=== PATIENT | female | born 1965 | race African-American/Black ===

== ENCOUNTER → 2016-12-05 | Day surgery (SDC) | payer OTHER ==
[~2016-12-05] VITALS: Ht 170.2 cm; Wt 90.5 kg
[~2016-12-05] MED LIST: ACETAMINOPHEN/HYDROcodone 325 MG/5 MG TAB PO PRN; BUPIVACAINE HCL PF 0.5% 30 ML VIAL ONE; BUPIVACAINE/EPINEPHRINE 0.5% 50 ML VIAL ONE; CHLORHEXIDINE GLUCONATE 2 % 1 PACK (2 CLOTHS) TOPICAL PRN; CHLORHEXIDINE GLUCONATE 4% SOLN 120 ML BTL TOPICAL SCH; CYCL-36 PO; FAMOTIDINE 20 MG/2 ML VIAL ONE; IBUP-238 PO; INSULIN HUMAN REGULAR 1,000 UNITS/10 ML VIAL SQ PRN; KETOROLAC TROMETHAMINE 60 MG/2 ML (IM) VIAL IM PRN; LACTATED RINGER'S 1000 ML IV PRN; LANTUS2P SQ; LISI40TA PO; METF850T PO; METO100T PO; METOPROLOL TARTRATE 25 MG TAB PO PRN; MIDAZOLAM HCL 2 MG/2 ML VIAL ONE; POVIDONE IODINE 5% (ANTISEPSIS KIT) 4 APPLICATIONS EACH NARE PRN; PROPOFOL 200 MG/20 ML AMP IV ONE; SIMV40TA PO; SODIUM CHLORID 0.9% 500 ML IV PRN; VANCOMYCIN 1000 MG/NS 250 ML (for <70 kg) IV SCH; ceFAZolin 2 GM PREMIX 50 ML IV SCH
--- NOTE | 2016-12-05 14:11 | MP ---
cc: ANDRÉS LEDESMA M.D. DATE OF SURGERY 12/05/[address] Kareem Ledesma. PREOPERATIVE DIAGNOSIS Right middle trigger finger. POSTOPERATIVE DIAGNOSIS Right middle trigger finger. PROCEDURE Right trigger finger release, middle finger. PROCEDURE IN DETAIL The patient was placed on an operating room stretcher only and the right hand was prepped and draped in the usual sterile fashion. Esmarch bandage was used to exsanguinate the upper extremity and pneumatic tourniquet was inflated to a pressure of 250. The time-out was called and the patient's name, procedure, location were fully verified. A transverse incision was made over the flexor tendon sheath proximal to the distal crease at the MP joint. The wound was taken down carefully through the subcutaneous tissues using sharp and blunt dissection. Care was taken to retract only proximal and distal to avoid any possible stretching of the neurovascular bundles. The flexor tendon sheath was identified and then pierced with a sharp scissor and then longitudinally opened with the same instrument. After full release I was able to bring the flexor tendon out of the wound and it did appear to be free. No triggering was present. Small bleeding points were electrocauterized. The skin edges were then reapproximated with two sutures of 4-0 nylon. Xeroform gauze was applied over the wound followed by application of a bulky hand dressing. The procedure was tolerated well. Sponge count, needle counts reported correct x2 and the estimated blood loss was nil. The patient was transferred to recovery unit in satisfactory condition. Andrés Ledesma MD [facility]/[place] /1:35 PM /2:02 PM
[2016-12-05 14:25] VITALS: PULSE 60
[2016-12-05 14:55] VITALS: BP 138/81; RESP 16; TEMP 98; O2SAT 95
== END | disposition home or self-care (01) ==
LOC: PHSDC 09:42
PROVIDERS: ATTEND Orthopaedic Surgery
DX: M65.331 Trigger finger, right middle finger (principal); I10 Essential (primary) hypertension; E11.9 Type 2 diabetes mellitus without complications; Z79.4 Long term (current) use of insulin
CPT/HCPCS: 01810; 26055; 82948; J0690; J2250; J3010; J3370; J7050; J7120

== ENCOUNTER 2017-02-08 20:17 | Observation (INO) | payer OTHER ==
[~2017-02-08] VITALS: Ht 170.2 cm; Wt 90.0 kg
[~2017-02-08 20:17] MED LIST changes: -ACETAMINOPHEN/HYDROcodone 325 MG/5 MG TAB PO PRN; -BUPIVACAINE HCL PF 0.5% 30 ML VIAL ONE; -BUPIVACAINE/EPINEPHRINE 0.5% 50 ML VIAL ONE; -CHLORHEXIDINE GLUCONATE 2 % 1 PACK (2 CLOTHS) TOPICAL PRN; -CHLORHEXIDINE GLUCONATE 4% SOLN 120 ML BTL TOPICAL SCH; -CYCL-36 PO; -FAMOTIDINE 20 MG/2 ML VIAL ONE; -IBUP-238 PO; -INSULIN HUMAN REGULAR 1,000 UNITS/10 ML VIAL SQ PRN; -KETOROLAC TROMETHAMINE 60 MG/2 ML (IM) VIAL IM PRN; -LACTATED RINGER'S 1000 ML IV PRN; -METOPROLOL TARTRATE 25 MG TAB PO PRN; -MIDAZOLAM HCL 2 MG/2 ML VIAL ONE; -POVIDONE IODINE 5% (ANTISEPSIS KIT) 4 APPLICATIONS EACH NARE PRN; -PROPOFOL 200 MG/20 ML AMP IV ONE; -SODIUM CHLORID 0.9% 500 ML IV PRN; -VANCOMYCIN 1000 MG/NS 250 ML (for <70 kg) IV SCH; -ceFAZolin 2 GM PREMIX 50 ML IV SCH
[2017-02-08 20:19] VITALS: BP 161/82; PULSE 88; RESP 18; TEMP 98.8; O2SAT 99
[2017-02-08] MEDS: NITROGLYCERIN 0.4 MG SL 25 TABS/BTL SL SCH ×2 (20:40→20:50)
[2017-02-08] MEDS ORDERED: SODIUM CHLORIDE 0.9% FLUSH 10 ML FLUSH IVF PRN (20:45)
--- NOTE | 2017-02-08 20:46 | PD ---
HPI Chief Complaint: Chest Pain Time Seen by Provider: 20:28 Travel History International Travel<30 days: No Contact w/Intl Traveler<30days: No Traveled to known affect area: No PFSH Past Medical History Cancer: Yes (MELANOMA 2001) Cardiovascular Problems: No High Cholesterol: Yes Diabetes: Yes Patient Takes Glucophage: Yes Endocrine: No GERD: Yes Genitourinary: No Hepatitis: No Hiatal Hernia: No Hypertension: Yes Immune Disorder: No Musculoskeletal: No Neurologic: No Psychiatric: Yes (CLAUSTROPHOBIC) Reproductive: No Respiratory: No Immunizations Current: Yes Thyroid Disease: No ?: Not Past Surgical History Abdominal Surgery: No AICD: No Cardiac Surgery: No Ear Surgery: No Endocrine Surgery: No Eye Surgery: No Genitourinary Surgery: No Gynecologic Surgery: Yes (PARTIAL HYSTERECTOMY) Hysterectomy: Yes (PARTIAL) Joint Replacement: No Oral Surgery: No Pacemaker: No Thoracic Surgery: No Other Surgery: Yes (CYST REMOVAL RIGHT WRIST) Social History Alcohol Use: No Tobacco Use: No Substance Use: No Allergies-Medications (Allergen,Severity, Reaction): Coded Allergies: acetaminophen (Unverified Allergy, Intermediate, VOMITTING, 02/08/17) PATIENT DENIES ondansetron (Unverified Allergy, Intermediate, HIVES, 02/08/17) propoxyphene (Unverified Allergy, Intermediate, VOMITTING, 02/08/17) PATIENT DENIES morphine (Unverified Adverse Reaction, Mild, VOMITTING, 02/08/17) Uncoded Allergies: STERI STRIPS (Allergy, Severe, BLISTERS, 12/05/16) Reported Meds & Prescriptions Reported Meds & Active Scripts Active Reported Simvastatin 40 Mg Tab 40 Mg PO HS Lantus Inj (Insulin Glargine) 1,000 Unit/10 Ml Vial 1 Units SQ HS Metformin (Metformin HCl) 850 Mg Tab 850 Mg PO BIDPC Metoprolol Tartrate 100 Mg Tab 100 Mg PO DAILY Lisinopril 40 Mg Tab 40 Mg PO DAILY Data Data Last Documented VS Vital Signs Date Time Temp Pulse Resp B/P (MAP) Pulse Ox O2 Delivery O2 Flow Rate FiO2 02/08/17 20:19 98.8 88 18 161/82 (108) 99 Room Air Orders Orders Electrocardiogram (02/08/17 20:36) Ckmb (Isoenzyme) Profile (02/08/17 20:36) Complete Blood Count With Diff (02/08/17 20:36) Comprehensive Metabolic Panel (02/08/17 20:36) Magnesium (Mg) (02/08/17 20:36) Prothrombin Time / Inr (Pt) (02/08/17 20:36) Act Partial Throm Time (Ptt) (02/08/17 20:36) Troponin I (02/08/17 20:36) Lipase (02/08/17 20:36) Chest, Single Ap (02/08/17 20:36) Ecg Monitoring (02/08/17 20:36) Bilateral Bp Monitoring (02/08/17 20:36) Iv Access Insert/Monitor (02/08/17 20:36) Oximetry (02/08/17 20:36) Oxygen Administration (02/08/17 20:36) Sodium Chloride 0.9% Flush (Ns Flush) (02/08/17 20:45) Nitroglycerin Sl (Nitrostat Sl) (02/08/17 20:45) Alma Langley MD Feb 08, 2017 20:46
[2017-02-08 20:53] VITALS: BP 146/81; PULSE 60; RESP 18; O2SAT 97
--- NOTE | 2017-02-08 21:11 | PD ---
HPI Chief Complaint: Chest Pain Time Seen by Provider: 20:30 Travel History International Travel<30 days: No Contact w/Intl Traveler<30days: No Traveled to known affect area: No History of Present Illness HPI Patient is a 51-year-old female presenting to emergency department for evaluation of chest pain. Patient states started earlier today, she initially presented to the [facility] emergency Department where she had an EKG and labs performed, they gave her the option of being admitted or followed up with cardiology as outpatient. She states that she felt well enough to follow up however 45 minutes prior to arrival to [place] she began to have midsternal chest pain that radiates to her left arm again. She states that she just did not feel good and didn't think she would make it to the other hospital. She denies any nausea, vomiting, diaphoresis, headache, palpitations. She does report that she felt dizzy. Patient was discharged from [facility] at 8:00 this evening. She does report a family history of early heart disease, she states also her parents in their late 40s, early 50s from a heart attack. Patient does not smoke, she has a glass of wine occasionally denies any illicit drug use. Her past medical history is significant for hyperlipidemia, type 2 diabetes, hypertension. She was given 4 baby aspirin in [facility]. [facility] Past Medical History Cancer: Yes (MELANOMA 2001) High Cholesterol: Yes Diabetes: Yes Patient Takes Glucophage: Yes GERD: Yes Hypertension: Yes Psychiatric: Yes (CLAUSTROPHOBIC) Immunizations Current: Yes ?: Not Past Surgical History Gynecologic Surgery: Yes (PARTIAL HYSTERECTOMY) Hysterectomy: Yes (PARTIAL) Other Surgery: Yes (CYST REMOVAL RIGHT WRIST) Social History Alcohol Use: No Tobacco Use: No Substance Use: No Allergies-Medications (Allergen,Severity, Reaction): Coded Allergies: acetaminophen (Unverified Allergy, Intermediate, VOMITTING, 02/08/17) PATIENT DENIES ondansetron (Unverified Allergy, Intermediate, HIVES, 02/08/17) propoxyphene (Unverified Allergy, Intermediate, VOMITTING, 02/08/17) PATIENT DENIES morphine (Unverified Adverse Reaction, Mild, VOMITTING, 02/08/17) Uncoded Allergies: STERI STRIPS (Allergy, Severe, BLISTERS, 12/05/16) Reported Meds & Prescriptions Reported Meds & Active Scripts Active Reported Simvastatin 40 Mg Tab 40 Mg PO HS Lantus Inj (Insulin Glargine) 1,000 Unit/10 Ml Vial 1 Units SQ HS Metformin (Metformin HCl) 850 Mg Tab 850 Mg PO BIDPC Metoprolol Tartrate 100 Mg Tab 100 Mg PO DAILY Lisinopril 40 Mg Tab 40 Mg PO DAILY Review of Systems Except as stated in HPI: all other systems reviewed are Neg General / Constitutional: No: Fever, Chills Eyes: No: Blurred Vision HENT: No: Headaches Cardiovascular: Positive: Chest Pain or Discomfort, No: Dyspnea on exertion Respiratory: No: Shortness of Breath Gastrointestinal: No: Nausea, Abdominal Pain Musculoskeletal: No: Myalgias Physical Exam Narrative GENERAL: Well-developed, well-nourished, alert female. Resting comfortably in no acute distress. SKIN: Warm and dry. HEAD: Atraumatic. Normocephalic. EYES: Pupils equal and round. No scleral icterus. No injection or drainage. ENT: No nasal bleeding or discharge. Mucous membranes pink and moist. NECK: Trachea midline. No JVD. CARDIOVASCULAR: Regular rate and rhythm. RESPIRATORY: No accessory muscle use. Clear to auscultation. Breath sounds equal bilaterally. GASTROINTESTINAL: Abdomen soft, non-tender, nondistended. Hepatic and splenic margins not palpable. MUSCULOSKELETAL: Extremities without clubbing, cyanosis, or edema. No obvious deformities. NEUROLOGICAL: Awake and alert. No obvious cranial nerve deficits. Motor grossly within normal limits. Five out of 5 muscle strength in the arms and legs. Normal speech. PSYCHIATRIC: Appropriate mood and affect; insight and judgment normal. Data Data Last Documented VS Vital Signs Date Time Temp Pulse Resp B/P (MAP) Pulse Ox O2 Delivery O2 Flow Rate FiO2 02/08/17 20:53 60 18 146/81 (102) 97 Room Air 02/08/17 20:19 98.8 Orders Orders Electrocardiogram (02/08/17 20:36) Ckmb (Isoenzyme) Profile (02/08/17 20:36) Complete Blood Count With Diff (02/08/17 20:36) Comprehensive Metabolic Panel (02/08/17 20:36) Magnesium (Mg) (02/08/17 20:36) Prothrombin Time / Inr (Pt) (02/08/17 20:36) Act Partial Throm Time (Ptt) (02/08/17 20:36) Troponin I (02/08/17 20:36) Lipase (02/08/17 20:36) Chest, Single Ap (02/08/17 20:36) Ecg Monitoring (02/08/17 20:36) Bilateral Bp Monitoring (02/08/17 20:36) Iv Access Insert/Monitor (02/08/17 20:36) Oximetry (02/08/17 20:36) Oxygen Administration (02/08/17 20:36) Sodium Chloride 0.9% Flush (Ns Flush) (02/08/17 20:45) Nitroglycerin Sl (Nitrostat Sl) (02/08/17 20:45) Morphine Inj (Morphine Inj) (02/08/17 22:15) Prochlorperazine Inj (Compazine Inj) (02/08/17 22:15) CKMB (02/08/17 21:44) CKMB% (02/08/17 21:44) Admit Order (Ed Use Only) (02/08/17 23:06) Labs Laboratory Tests Test 02/08/17 21:44 White Blood Count 8.1 TH/MM3 Red Blood Count 3.67 MIL/MM3 Hemoglobin 10.1 GM/DL Hematocrit 31.2 % Mean Corpuscular Volume 84.9 FL Mean Corpuscular Hemoglobin 27.4 PG Mean Corpuscular Hemoglobin Concent 32.3 % Red Cell Distribution Width 13.7 % Platelet Count 358 TH/MM3 Mean Platelet Volume 7.3 FL Neutrophils (%) (Auto) 54.0 % Lymphocytes (%) (Auto) 38.2 % Monocytes (%) (Auto) 5.6 % Eosinophils (%) (Auto) 1.3 % Basophils (%) (Auto) 0.9 % Neutrophils # (Auto) 4.4 TH/MM3 Lymphocytes # (Auto) 3.1 TH/MM3 Monocytes # (Auto) 0.5 TH/MM3 Eosinophils # (Auto) 0.1 TH/MM3 Basophils # (Auto) 0.1 TH/MM3 CBC Comment DIFF FINAL Differential Comment Prothrombin Time 10.1 SEC Prothromb Time International Ratio 1.0 RATIO Activated Partial Thromboplast Time 25.2 SEC Blood Urea Nitrogen 15 MG/DL Creatinine 0.89 MG/DL Random Glucose 88 MG/DL Total Protein 7.9 GM/DL Albumin 3.7 GM/DL Calcium Level 8.7 MG/DL Magnesium Level 2.0 MG/DL Alkaline Phosphatase 64 U/L Aspartate Amino Transf (AST/SGOT) 18 U/L Alanine Aminotransferase (ALT/SGPT) 17 U/L Total Bilirubin 0.3 MG/DL Sodium Level 140 MEQ/L Potassium Level 3.8 MEQ/L Chloride Level 106 MEQ/L Carbon Dioxide Level 26.3 MEQ/L Anion Gap 8 MEQ/L Estimat Glomerular Filtration Rate 82 ML/MIN Total Creatine Kinase 153 U/L Creatine Kinase MB LESS THAN 0.5 NG/ML Troponin I LESS THAN 0.02 NG/ML Lipase 138 U/L MDM Medical Decision Making Medical Screen Exam Complete: Yes Emergency Medical Condition: Yes Interpretation(s) Last Impressions Chest X-Ray 02/08/172035 Signed Impressions: Service Date/Time: Wednesday, February 08, 2017 21:00 - CONCLUSION: No acute cardiopulmonary process. There is suspected chronic change at the distal right clavicle. Orlin Cary MD Vital Signs Date Time Temp Pulse Resp B/P (MAP) Pulse Ox O2 Delivery O2 Flow Rate FiO2 02/08/17 20:53 60 18 146/81 (102) 97 Room Air 02/08/17 20:19 98.8 88 18 161/82 (108) 99 Room Air Differential Diagnosis ACS versus USA versus NSTEMI versus metabolic abnormality versus other Narrative Course Patient is a 51-year-old female presenting for evaluation of chest pain. She was just discharged from [facility] at 8 PM, the chest pain returned and she presented here. Patient was hypertensive on arrival, labs and imaging ordered and pending. Nitroglycerin sublingually was ordered 2 doses for chest pain. She was already given 4 baby aspirin at [facility] this morning per her report. Patient has significant family history as well as her known history of hypertension and type 2 diabetes, hyperlipidemia provider at increased risk for cardiovascular disease. Visual likely be placed and chest pain Center overnight , patient is agreeable to this plan. Initial EKG shows him, possible left atrial enlargement. Ventricular rate is 62. Chest x-ray shows no acute disease, suspected right old clavicle fracture. 2209 patient was reassessed, nitroglycerin did not alleviate patient's chest pain. Morphine and Compazine ordered for pain. Morphine is listed as an allergy however patient states it makes her feel nauseated. Chemistry and enzymes are pending, care of pt transferred to Dr. Langley who will determine pt's disposition. Pt agreeable to [facility] admit. Mariza Gillespie Feb 08, 2017 21:11
--- NOTE | 2017-02-08 21:16 | RADRPT ---
EXAM DATE/TIME: 02/08/2017 21:00 [place] COMPARISON: No previous studies available for comparison. INDICATIONS : Chest Pain MEDICAL HISTORY : None. SURGICAL HISTORY : None. ENCOUNTER: Initial ACUITY: 1 day PAIN SCORE: 6/10 LOCATION: Bilateral chest FINDINGS: A single view of the chest demonstrates the lungs to be symmetrically aerated without evidence of mas s, infiltrate or effusion. The cardiomediastinal contours are unremarkable. There appears to be abse nce of the distal right clavicle which is likely from prior injury. There is widening of the acromioc lavicular joint on the right. CONCLUSION: No acute cardiopulmonary process. There is suspected chronic change at the distal right clavicle. Orlin Cary MD on February 08, 2017 at 21:13 Board Certified Radiologist. This report was verified electronically.
[2017-02-08] MEDS ORDERED: MORPHINE SULFATE 2 MG/ML INJ IV PUSH ONE (22:15)
[2017-02-08] MEDS ORDERED: PROCHLORPERAZINE INJ 10 MG/2 ML VIAL IM ONE (22:15)
[2017-02-08 22:17] LABS: AUTOMATED NEUTROPHIL # 4.4 TH/MM3 (1.8-7.7); BASOPHIL # 0.1 TH/MM3 (0-0.2); BASOPHIL % 0.9 % (0.0-2.0); EOSINOPHIL # 0.1 TH/MM3 (0-0.4); EOSINOPHIL % 1.3 % (0.0-4.0); HEMATOCRIT 31.2 % (35.0-46.0); HEMO FLAGS DIFF FINAL; LYMPH % 38.2 % (9.0-44.0); LYMPHOCYTE # 3.1 TH/MM3 (1.0-4.8); MEAN CELL VOLUME 84.9 FL (80.0-100.0); MEAN CORPUSCULAR HEMOGLOBIN 27.4 PG (27.0-34.0); MEAN CORPUSCULAR HGB CONC 32.3 % (32.0-36.0); MONO % 5.6 % (0.0-8.0); PLATELET COUNT 358 TH/MM3 (150-450); RED BLOOD COUNT 3.67 MIL/MM3 (4.00-5.30); RED CELL DISTRIBUTION WIDTH 13.7 % (11.6-17.2); WHITE BLOOD COUNT 8.1 TH/MM3 (4.0-11.0)
[2017-02-08 22:47] LABS: APTT (PATIENT) 25.2 SEC (24.3-30.1); PROTHROMBIN TIME - PATIENT 10.1 SEC (9.8-11.6)
--- NOTE | 2017-02-08 22:52 | PD ---
Physical Exam Narrative General: The patient is a well-developed well-nourished female in no acute distress. Head and Neck exam: Head is normocephalic atraumatic. Eyes: Pupils are equal round and reactive to light. Nose: Midline septum with pink mucous membranes Mouth: Dentition unremarkable. Moist mucus membranes. Posterior oropharynx is not erythematous. No tonsillar hypertrophy. Uvula midline. Airway patent. Neck: No palpable lymphadenopathy. No nuchal rigidity. No thyromegaly. Cardiovascular: Regular rate and rhythm without murmurs, gallops, or rubs. No pulse deficit to the extremities on simultaneous auscultation and palpation of her radial artery. Lungs: Clear to auscultation bilaterally. No wheezes, rhonchi, or rales. Abdomen: Soft, without tenderness to palpation in all 4 quadrants of the abdomen. No guarding, rebound, or rigidity. Normal bowel sounds are audible. No tenderness on palpation of McBurney's point. Extremities: No clubbing, cyanosis, or edema. 2+ pulses in all 4 extremities. Tenderness on palpation. Neurologic Exam: Grossly nonfocal. Skin Exam: No rash noted. Intact skin that is warm and dry. Data Data Last Documented VS Vital Signs Date Time Temp Pulse Resp B/P (MAP) Pulse Ox O2 Delivery O2 Flow Rate FiO2 02/08/17 20:53 60 18 146/81 (102) 97 Room Air 02/08/17 20:19 98.8 Orders Orders Electrocardiogram (02/08/17 20:36) Ckmb (Isoenzyme) Profile (02/08/17 20:36) Complete Blood Count With Diff (02/08/17 20:36) Comprehensive Metabolic Panel (02/08/17 20:36) Magnesium (Mg) (02/08/17 20:36) Prothrombin Time / Inr (Pt) (02/08/17 20:36) Act Partial Throm Time (Ptt) (02/08/17 20:36) Troponin I (02/08/17 20:36) Lipase (02/08/17 20:36) Chest, Single Ap (02/08/17 20:36) Ecg Monitoring (02/08/17 20:36) Bilateral Bp Monitoring (02/08/17 20:36) Iv Access Insert/Monitor (02/08/17 20:36) Oximetry (02/08/17 20:36) Oxygen Administration (02/08/17 20:36) Sodium Chloride 0.9% Flush (Ns Flush) (02/08/17 20:45) Nitroglycerin Sl (Nitrostat Sl) (02/08/17 20:45) Morphine Inj (Morphine Inj) (02/08/17 22:15) Prochlorperazine Inj (Compazine Inj) (02/08/17 22:15) CKMB (02/08/17 21:44) CKMB% (02/08/17 21:44) Admit Order (Ed Use Only) (02/08/17 23:06) Labs Laboratory Tests Test 02/08/17 21:44 White Blood Count 8.1 TH/MM3 Red Blood Count 3.67 MIL/MM3 Hemoglobin 10.1 GM/DL Hematocrit 31.2 % Mean Corpuscular Volume 84.9 FL Mean Corpuscular Hemoglobin 27.4 PG Mean Corpuscular Hemoglobin Concent 32.3 % Red Cell Distribution Width 13.7 % Platelet Count 358 TH/MM3 Mean Platelet Volume 7.3 FL Neutrophils (%) (Auto) 54.0 % Lymphocytes (%) (Auto) 38.2 % Monocytes (%) (Auto) 5.6 % Eosinophils (%) (Auto) 1.3 % Basophils (%) (Auto) 0.9 % Neutrophils # (Auto) 4.4 TH/MM3 Lymphocytes # (Auto) 3.1 TH/MM3 Monocytes # (Auto) 0.5 TH/MM3 Eosinophils # (Auto) 0.1 TH/MM3 Basophils # (Auto) 0.1 TH/MM3 CBC Comment DIFF FINAL Differential Comment Prothrombin Time 10.1 SEC Prothromb Time International Ratio 1.0 RATIO Activated Partial Thromboplast Time 25.2 SEC Blood Urea Nitrogen 15 MG/DL Creatinine 0.89 MG/DL Random Glucose 88 MG/DL Total Protein 7.9 GM/DL Albumin 3.7 GM/DL Calcium Level 8.7 MG/DL Magnesium Level 2.0 MG/DL Alkaline Phosphatase 64 U/L Aspartate Amino Transf (AST/SGOT) 18 U/L Alanine Aminotransferase (ALT/SGPT) 17 U/L Total Bilirubin 0.3 MG/DL Sodium Level 140 MEQ/L Potassium Level 3.8 MEQ/L Chloride Level 106 MEQ/L Carbon Dioxide Level 26.3 MEQ/L Anion Gap 8 MEQ/L Estimat Glomerular Filtration Rate 82 ML/MIN Total Creatine Kinase 153 U/L Creatine Kinase MB LESS THAN 0.5 NG/ML Troponin I LESS THAN 0.02 NG/ML Lipase 138 U/L [facility] Medical Record Reviewed: Yes Supervised Visit with ZAHRAA: Yes Interpretation(s) Last Impressions Chest X-Ray 02/08/172035 Signed Impressions: Service Date/Time: Wednesday, February 08, 2017 21:00 - CONCLUSION: No acute cardiopulmonary process. There is suspected chronic change at the distal right clavicle. Orlin Cary MD Differential Diagnosis Acute coronary syndrome, versus acid reflux, versus anxiety disorder, versus pleurisy, versus costochondritis, versus musculoskeletal strain Narrative Course I, Dr. Langley, have reviewed the advance practice practitioner's documentation and am in agreement, met with the patient face to face, made the diagnosis, and the medical decision making was done by me. The patient was initially evaluated by Mariza, the nurse practitioner. Please see their complete history and physical. *My assessment and Findings: The patient presents with chest pain that began During the course of the patients emergency department visit, the patients history, examination, and differential diagnosis were reviewed with the patient. The patient was placed on a night monitor with oximetry and frequent blood pressure monitoring. The patient had IV access obtained and blood work sent for analysis. The patient was initially provided sublingual nitroglycerin 2, Compazine 5 mg IV, morphine 2 mg IV. The patient's case was checked out to me at the conclusion of Mariza shift pending chemistry results. She plan to admit the patient to the chest pain center once these results were completed. The patients laboratory studies were reviewed and remarkable for a white count of 8.1, hemoglobin 10.1, platelets 358 with a normal differential, CMP is remarkable for a GFR of 82, initial set of cardiac enzymes are negative, lipase 138, PT PTT within normal limits Radiology studies were reviewed and remarkable for a chest x-ray that shows no acute cardiopulmonary disease, suspected chronic change of the distal right clavicle. The patients results were discussed with the patient, including the plan of care. I explained that further testing and/ or monitoring is indicated based on the patients history, examination, and/ or laboratory findings. Therefore, I recommended admission for additional evaluation. The patient expressed understanding and was agreeable with this plan. The patient was admitted to the hospital in stable condition and sent to a bed under the care of chest pain center. Diagnosis Primary Impression: Chest pain, rule out acute myocardial infarction Admitting Information Admitting Physician Requests: Observation Alma Langley MD Feb 08, 2017 22:52
[2017-02-08 22:56] LABS: ALT (GPT) 17 U/L (10-53)
[2017-02-08 23:00] LABS: ALKALINE PHOSPHATASE 64 U/L (45-117); CREATINE KINASE 153 U/L (26-192); TOTAL BILIRUBIN ADULT 0.3 MG/DL (0.2-1.0)
[2017-02-08 23:02] LABS: ANION GAP 8 MEQ/L (5-15); AST (GOT) 18 U/L (15-37); BICARBONATE 26.3 MEQ/L (21.0-32.0); BLOOD UREA NITROGEN 15 MG/DL (7-18); CHLORIDE 106 MEQ/L (98-107); GLOMERULAR FILTRATION RATE 82 ML/MIN (>89); POTASSIUM 3.8 MEQ/L (3.5-5.1); SODIUM (NA) 140 MEQ/L (136-145)
[2017-02-08 23:12] LABS: CKMB LESS THAN 0.5 NG/ML (0.5-3.6)
[2017-02-08] MEDS ORDERED: SODIUM CHLORIDE 0.9% FLUSH 10 ML FLUSH IV FLUSH PRN (23:30)
[2017-02-08 23:37] VITALS: BP 152/77; PULSE 54; RESP 16; O2SAT 95
[2017-02-08 23:40] VITALS: O2SAT 97
[2017-02-09 00:31] VITALS: BP 113/66; PULSE 53; RESP 18; TEMP 98.1; O2SAT 94
[2017-02-09 01:21] VITALS: PULSE 51
[2017-02-09 01:34] LABS: CREATINE KINASE 247 U/L (26-192)
[2017-02-09 01:46] LABS: CKMB 0.8 NG/ML (0.5-3.6)
[2017-02-09 03:39] VITALS: BP 115/65; PULSE 54; RESP 18; TEMP 98.1; O2SAT 95
[2017-02-09 04:44] LABS: CREATINE KINASE 240 U/L (26-192)
[2017-02-09 04:48] VITALS: PULSE 56
[2017-02-09 04:58] LABS: CKMB 0.8 NG/ML (0.5-3.6)
[2017-02-09 08:17] VITALS: PULSE 51
[2017-02-09] MEDS ORDERED: KETOROLAC TROMETHAMINE 30 MG/ML (IVP) VIAL IVP ONE (08:30)
[2017-02-09] MEDS ORDERED: DEXTROSE 50% IN WATER 50 ML VIAL(D50) IV PUSH PRN (08:30)
[2017-02-09] MEDS ORDERED: GLUCAGON 1 MG/ML VIAL OTHER PRN (08:30)
--- NOTE | 2017-02-09 08:34 | HHI.HP ---
[facility] Primary Care Physician Noman Spears MD Chief Complaint Chest pain History of Present Illness This is a 51-year-old female with history of hypertension, hyperlipidemia, and diabetes that presents to ED for evaluation of chest discomfort. Patient states that she has had a central chest discomfort yesterday lasting about 5 minutes. She went [facility] for this, had labs and EKG and was discharged. She states that within less than an hour of discharge she developed same discomfort in the center of her chest also lasting about 5 minutes with shortness of breath and decided to get reevaluated. No nausea or diaphoresis. Found nothing in particular bring on the discomfort. Nothing seemed to worsen it. Nothing seemed to help. Cannot recall prior cardiac evaluation. Review of Systems General: Patient denies fevers, chills recent, and recent travel HEENT: Patient denies headache, sore throat, difficulty swallowing. Cardiovascular: Has the chest discomfort as mentioned above. Denies sensation of heart beating rapidly or irregularly. No syncope. Denies diaphoresis. Respiratory: Had shortness of breath. Denies inspirational chest discomfort. Denies coughing wheezing or hemoptysis. GI: Patient denies nausea, vomiting, diarrhea, abdominal pain, bloody stools. Musculoskeletal: Patient denies joint pain or edema. Denies calf pain or edema. Neurovascular: Patient denies numbness, tingling, weakness in extremities. Denies headache. Endocrine: Denies polyuria and polydipsia. Hematologic: Denies easy bruising. Skin: Denies rash or itching. Past Family Social History Allergies: Coded Allergies: acetaminophen (Unverified Allergy, Intermediate, VOMITTING, 02/08/17) PATIENT DENIES ondansetron (Unverified Allergy, Intermediate, HIVES, 02/08/17) propoxyphene (Unverified Allergy, Intermediate, VOMITTING, 02/08/17) PATIENT DENIES morphine (Unverified Adverse Reaction, Mild, VOMITTING, 02/08/17) Uncoded Allergies: STERI STRIPS (Allergy, Severe, BLISTERS, 12/05/16) Past Medical History Hypertension, hyperlipidemia, and diabetes. Past Surgical History Hysterectomy. Excision of a melanoma right thigh 2002. Both knees. Reported Medications Reported Meds & Active Scripts Active Reported Simvastatin 40 Mg Tab 40 Mg PO HS Lantus Inj (Insulin Glargine) 1,000 Unit/10 Ml Vial 1 Units SQ HS Metformin (Metformin HCl) 850 Mg Tab 850 Mg PO BIDPC Metoprolol Tartrate 100 Mg Tab 100 Mg PO DAILY Lisinopril 40 Mg Tab 40 Mg PO DAILY Active Ordered Medications Current Medications Medications (Trade) Dose Ordered Sig/Sy Route Start Time Stop Time Status Last Admin (NS Flush) 2 ml UNSCH PRN IVF 02/08/17 20:45 (NS Flush) 2 ml UNSCH PRN IV FLUSH 02/08/17 23:30 (NS Flush) 2 ml BID IV FLUSH 02/09/17 09:00 (Lopressor) 100 mg DAILY PO 02/09/17 09:00 UNV Non-Formulary Medication 40 mg DAILY PO 02/09/17 09:00 UNV Non-Formulary Medication 40 mg HS PO 02/09/17 21:00 UNV (Toradol Inj) 30 mg ONCE ONCE IVP 02/09/17 08:30 02/09/17 08:31 UNV (D50w (Vial) Inj) 50 ml UNSCH PRN IV PUSH 02/09/17 08:30 UNV (Glucagon Inj) 1 mg UNSCH PRN OTHER 02/09/17 08:30 UNV (NovoLOG SUPPLEMENTAL SCALE) 1 ACHS SLIDING SCALE SQ 02/09/17 12:00 UNV Family History Both parents had CAD in their 40s. Social History She does not smoke. Denies illicit drug use. Denies alcohol abuse. Physical Exam Vital Signs Vital Signs Date Time Temp Pulse Resp B/P (MAP) Pulse Ox O2 Delivery O2 Flow Rate FiO2 02/09/17 04:48 56 02/09/17 03:39 98.1 54 18 115/65 (82) 95 02/09/17 01:21 51 02/09/17 00:31 98.1 53 18 113/66 (82) 94 02/08/17 23:58 02/08/17 23:40 97 21 02/08/17 23:37 54 16 152/77 (102) 95 Room Air 02/08/17 20:53 60 18 146/81 (102) 97 Room Air 02/08/17 20:19 98.8 88 18 161/82 (108) 99 Room Air Physical Exam GENERAL: This is a well-nourished, well-developed patient, in no apparent distress. Patient speaks in clear complete sentences. Patient is pleasant. HEENT: Head is atraumatic and normocephalic. Neck is supple without lymphadenopathy and trachea is midline. No JVD or carotid bruits. CARDIOVASCULAR: Regular rate and rhythm without murmurs, gallops, or rubs. RESPIRATORY: Clear to auscultation. Breath sounds equal bilaterally. No wheezes , rales, or rhonchi. Chest wall is nontender. No use of accessory muscles. GASTROINTESTINAL: Abdomen is nontender, nondistended. Abdomen soft. No obvious pulsatile mass or bruit. No CVA tenderness. Strong femoral pulses bilaterally. Normal bowel sounds in all quadrants. MUSCULOSKELETAL: Patient is moving upper and lower extremities freely. No calf tenderness or edema, no Homans sign. Strong pulses in upper and lower extremities. NEUROLOGICAL: Patient is alert and oriented. Cranial nerves 2-12 are grossly intact. No focal deficits and speech is clear. SKIN: No rash and turgor is normal. Laboratory Laboratory Tests Test 02/08/17 21:44 02/09/17 01:00 02/09/17 03:56 White Blood Count 8.1 Red Blood Count 3.67 Hemoglobin 10.1 Hematocrit 31.2 Mean Corpuscular Volume 84.9 Mean Corpuscular Hemoglobin 27.4 Mean Corpuscular Hemoglobin Concent 32.3 Red Cell Distribution Width 13.7 Platelet Count 358 Mean Platelet Volume 7.3 Neutrophils (%) (Auto) 54.0 Lymphocytes (%) (Auto) 38.2 Monocytes (%) (Auto) 5.6 Eosinophils (%) (Auto) 1.3 Basophils (%) (Auto) 0.9 Neutrophils # (Auto) 4.4 Lymphocytes # (Auto) 3.1 Monocytes # (Auto) 0.5 Eosinophils # (Auto) 0.1 Basophils # (Auto) 0.1 CBC Comment DIFF FINAL Differential Comment Prothrombin Time 10.1 Prothromb Time International Ratio 1.0 Activated Partial Thromboplast Time 25.2 Blood Urea Nitrogen 15 Creatinine 0.89 Random Glucose 88 Total Protein 7.9 Albumin 3.7 Calcium Level 8.7 Magnesium Level 2.0 Alkaline Phosphatase 64 Aspartate Amino Transf (AST/SGOT) 18 Alanine Aminotransferase (ALT/SGPT) 17 Total Bilirubin 0.3 Sodium Level 140 Potassium Level 3.8 Chloride Level 106 Carbon Dioxide Level 26.3 Anion Gap 8 Estimat Glomerular Filtration Rate 82 Total Creatine Kinase 153 247 240 Creatine Kinase MB LESS THAN 0.5 0.8 0.8 Troponin I LESS THAN 0.02 LESS THAN 0.02 LESS THAN 0.02 Lipase 138 Creatine Kinase MB % 0.3 0.3 Result Diagram: 02/08/17214302/08/172143 Imaging Last 24 hours Impressions Chest X-Ray 02/08/172035 Signed Impressions: Service Date/Time: Wednesday, February 08, 2017 21:00 - CONCLUSION: No acute cardiopulmonary process. There is suspected chronic change at the distal right clavicle. Orlin Cary MD Course EKGs are sinus rhythm to sinus bradycardia without significant ST segment depressions or elevations. Caprini VTE Risk Assessment Caprini VTE Risk Assessment: No/Low Risk (score <= 1) Caprini Risk Assessment Model Point Value = 1 Point Value = 2 Point Value = 3 Point Value = 5 Age 41-60 Minor surgery BMI > 25 kg/m2 Swollen legs Varicose veins or History of unexplained or recurrent spontaneous Oral contraceptives or hormone replacement Sepsis (< 1 month) Serious lung disease, including pneumonia (< 1 month) Abnormal pulmonary function Acute myocardial infarction Congestive heart failure (< 1 month) History of inflammatory bowel disease Medical patient at bed rest Age 61-74 Arthroscopic surgery Major open surgery (> 45 min) Laparoscopic surgery (> 45 min) Malignancy Confined to bed (> 72 hours) Immobilizing plaster cast Central venous access Age >= 75 History of VTE Family history of VTE Factor V Leiden Prothrombin [id number] Lupus anticoagulant Anticardiolipin antibodies Elevated serum homocysteine Heparin-induced thrombocytopenia Other congenital or acquired thrombophilia Stroke (< 1 month) Elective arthroplasty Hip, pelvis, or leg fracture Acute spinal cord injury (< 1 month) Prophylaxis Regimen Total Risk Factor Score Risk Level Prophylaxis Regimen 0-1 Low Early ambulation 2 Moderate Order ONE of the following: *Sequential Compression Device (SCD) *Heparin 5000 units SQ BID 3-4 Higher Order ONE of the following medications: *Heparin 5000 units SQ TID *Enoxaparin/Lovenox 40 mg SQ daily (WT < 150 kg, CrCl > 30 mL/min) *Enoxaparin/Lovenox 30 mg SQ daily (WT < 150 kg, CrCl > 10-29 mL/min) *Enoxaparin/Lovenox 30 mg SQ BID (WT < 150 kg, CrCl > 30 mL/min) AND/OR *Sequential Compression Device (SCD) 5 or more Highest Order ONE of the following medications: *Heparin 5000 units SQ TID (Preferred with Epidurals) *Enoxaparin/Lovenox 40 mg SQ daily (WT < 150 kg, CrCl > 30 mL/min) *Enoxaparin/Lovenox 30 mg SQ daily (WT < 150 kg, CrCl > 10-29 mL/min) *Enoxaparin/Lovenox 30 mg SQ BID (WT < 150 kg, CrCl > 30 mL/min) AND *Sequential Compression Device (SCD) Assessment and Plan Assessment and Plan * Chest pain: Patient has had serial cardiac enzymes and EKGs for ruling out purposes. She has been seen by Dr. Jas Hood of cardiology in the chest pain center. Patient will have a Lexiscan myocardial perfusion stress test and be discharged at that stress test is nonischemic. Patient should follow-up with PCP and return to ED for interval issues. * Diabetes: We'll hold her medication at this time. Will be on sliding scale coverage. Follow diabetic diet. Resume medication at discharge. * Hypertension: Continue current medication. * Hyperlipidemia: Continue current medication. Patient is stable at this time. She is agreeable to this plan. Jason Jenkins Feb 09, 2017 08:34
[2017-02-09] MEDS ORDERED: LISINOPRIL 20 MG TAB PO SCH (09:00)
[2017-02-09] MEDS ORDERED: SODIUM CHLORIDE 0.9% FLUSH 10 ML FLUSH IV FLUSH SCH (09:00)
[2017-02-09] MEDS ORDERED: METOPROLOL TARTRATE 100 MG TAB PO SCH (09:00)
[2017-02-09] MEDS ORDERED: REGADENOSON INJ 0.4 MG/5 ML SYR ONE (09:45)
[2017-02-09 11:02] VITALS: BP 121/76; PULSE 62; RESP 18; TEMP 98; O2SAT 99
--- NOTE | 2017-02-09 11:12 | RADRPT ---
EXAM DATE/TIME: 02/09/2017 09:16 [facility] COMPARISON: No previous studies available for comparison. INDICATIONS : Midsternal chest pain. Angina. DOSE: 27.3 mCi Tc99m Myoview at stress. 8.2 mCi Tc99m Myoview at rest. 0.4 mg Lexiscan STRESS SYMPTOMS: Chest pain and dyspnea. EJECTION FRACTION: 46% MEDICAL HISTORY : Carcinoma, basal cell. Hypercholesterolemia. Hypertension. SURGICAL HISTORY : Hysterectomy. Bilateral knee surgery. ENCOUNTER: Initial ACUITY: 1 day PAIN SCALE: 3/10 LOCATION: Midsternal chest TECHNIQUE: The patient underwent pharmacologic stress with infusion of prescribed dose. Continuous ECG tracing was monitored during stress. Gated SPECT imaging was performed after stress and conventional SPECT i maging was performed at rest. The examination was performed on a SPECT/CT scanner, both attenuation and non-corrected datasets were reviewed. FINDINGS: DISTRIBUTION: The maximum perfused segment at stress is in the inferior wall. PERFUSION STUDY: The pattern of perfusion at stress is within normal limits. GATED STUDY: There is intact wall motion and thickening without hypokinetic or dyskinetic segments. CONCLUSION: 1. No stress-induced perfusion defect. 2. No focal wall motion abnormality with mild global hypokinesia. EF of 46%. RISK CATEGORY: Low (<1% Annual Mortality Rate) Davidson Flaherty MD on February 09, 2017 at 11:05 Board Certified Radiologist. This report was verified electronically.
--- NOTE | 2017-02-09 11:39 | HHI.DCPOC ---
Discharge Care Plan Diagnosis: (1) Chest pain (2) Hypertension (3) Hyperlipidemia (4) DM (diabetes mellitus) Goals to Promote Your Health * To prevent worsening of your condition and complications * To maintain your health at the optimal level Directions to Meet Your Goals Take your medications as prescribed Follow your dietary instruction Follow activity as directed Keep your appointments as scheduled Take your immunizations and boosters as scheduled If your symptoms worsen call your PCP, if no PCP go to Urgent Care Center or Emergency Room Smoking is Dangerous to Your Health. Avoid second hand smoke Call the 24-hour hour crisis hotline for domestic abuse at Jason Jenkins Feb 09, 2017 11:38
[2017-02-09] MEDS ORDERED: INSULIN ASPART SUPPLEMENTAL SCALE SQ SCH (12:00)
[2017-02-09] MEDS ORDERED: PRAVASTATIN SOD 80 MG TAB PO SCH (21:00)
--- NOTE | 2017-02-10 07:53 | TR ---
Date Performed: 02/09/2017 Time Performed: 09:38:42 DOCTOR: Sonya Croft DRUG LIST: CLINICAL HISTORY: REASON FOR TEST: REASON FOR ENDING: OBSERVATION: CONCLUSION: Lexiscan stress test was performed under standard four minute protocol. Radionuclid e was injected one minute prior to ending the test. No electrocardiographic abormalities were present to suggest ischemia. Nuclear imaging and interpretation are pending. COMMENTS:
--- NOTE | 2017-02-10 07:53 | EKG ---
Date Performed: 02/09/2017 Time Performed: 03:33:56 PTAGE: 51 years EKG: SINUS BRADYCARDIA BORDERLINE ECG Since PREVIOUS TRACING , no significant change noted PREVIOUS TRACIN02/09/2017 00.40 DOCTOR: Sonya Croft Interpretating Date/Time 02/10/2017 07:53:10
--- NOTE | 2017-02-10 08:04 | EKG ---
Date Performed: 02/08/2017 Time Performed: 20:34:22 PTAGE: 51 years EKG: Sinus rhythm POSSIBLE LEFT ATRIAL ENLARGEMENT BORDERLINE ECG Since PREVIOUS TRACING , no significant change noted PREVIOUS TRACIN11/13/2000 22.44 DOCTOR: Sonya Croft Interpretating Date/Time 02/10/2017 08:03:49
--- NOTE | 2017-02-10 08:05 | EKG ---
Date Performed: 02/09/2017 Time Performed: 00:40:28 PTAGE: 51 years EKG: SINUS BRADYCARDIA BORDERLINE ECG Since PREVIOUS TRACING , no significant change noted PREVIOUS TRACIN02/09/2017 00.39 DOCTOR: Sonya Croft Interpretating Date/Time 02/10/2017 08:04:29
== END 2017-02-09 12:26 | disposition home or self-care (01) ==
LOC: NEPE 20:17 → NEDA 23:08 → NEPFCDU 23:50
PROVIDERS: ADMIT Internal Medicine Interventional Cardiology; ATTEND Internal Medicine Interventional Cardiology
DX: R07.9 Chest pain, unspecified (principal); R94.31 Abnormal electrocardiogram [ECG] [EKG]; I10 Essential (primary) hypertension; E78.5 Hyperlipidemia, unspecified; E11.9 Type 2 diabetes mellitus without complications; K21.9 Gastro-esophageal reflux disease without esophagitis; F40.240 Claustrophobia; Z82.49 Family history of ischemic heart disease and other diseases of the circulatory system; Z85.820 Personal history of malignant melanoma of skin; Z90.710 Acquired absence of both cervix and uterus; Z79.84 Long term (current) use of oral hypoglycemic drugs
CPT/HCPCS: 71010; 78452; 80053; 82550; 82552; 82948; 83690; 83735; 84484; 85025; 85610; 85730; 93005; 93017; 96372; 96374; 96375; 99285; A9502; G0378; J0780; J1885; J2270; J2785

== ENCOUNTER 2017-04-18 11:23 | Emergency (ER) | payer OTHER ==
[~2017-04-18] VITALS: Ht 170.2 cm; Wt 91.0 kg
[2017-04-18 11:27] VITALS: BP 127/82; PULSE 74; RESP 12; TEMP 98.8; O2SAT 100
--- NOTE | 2017-04-18 12:28 | PD ---
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 Reports increased urination. Denies dysuria, hematuria. Reports vaginal itching. Denies foul odor or lesions. Unknown exposure to STD. Denies fever, vomiting, abdominal pain. Has had partial hysterectomy and does not have periods. Denies pain. Saw her primary care provider and was given a prescription of antibiotics for urinary tract infection and then when she went back to her primary care provider her urine culture was negative. She did take the entire prescription of antibiotics, but does not know the name of them. Has tried Monistat for symptom treatment. No known relieving or aggravating factors. Symptoms are mild to moderate in severity. Primary care provider is [facility]. History of diabetes mellitus, hypercholesterolemia, hypertension. Allergies to morphine sulfate, Zofran, Steri-Strips. Has no other medical complaints. No other modifying factors or associated signs and symptoms. PFSH Past Medical History Cancer: Yes (MELANOMA 2001) Cardiac Catheterization: Yes (2016) Cardiovascular Problems: No High Cholesterol: Yes Diabetes: Yes Patient Takes Glucophage: Yes Endocrine: No Gastrointestinal Disorders: Yes (GERD) GERD: Yes Genitourinary: No Hepatitis: No Hiatal Hernia: No Hypertension: Yes Immune Disorder: No Medical other: No Musculoskeletal: No Neurologic: No Psychiatric: Yes (CLAUSTROPHOBIC) Reproductive: No Respiratory: No Immunizations Current: Yes Thyroid Disease: No ?: Not Past Surgical History Abdominal Surgery: No AICD: No Cardiac Surgery: No Ear Surgery: No Endocrine Surgery: No Eye Surgery: No Genitourinary Surgery: No Gynecologic Surgery: Yes (PARTIAL HYSTERECTOMY) Hysterectomy: Yes (PARTIAL) Joint Replacement: No Neurologic Surgery: No Oral Surgery: No Pacemaker: No Thoracic Surgery: No Other Surgery: Yes (CYST REMOVAL RIGHT WRIST) Family History Family Myocardial Infarction: Yes (mother and father at ages 37, 45) Social History Alcohol Use: No Tobacco Use: No Substance Use: No Allergies-Medications (Allergen,Severity, Reaction): Coded Allergies: acetaminophen (Unverified Allergy, Intermediate, VOMITTING, 02/08/17) PATIENT DENIES ondansetron (Unverified Allergy, Intermediate, HIVES, 02/08/17) propoxyphene (Unverified Allergy, Intermediate, VOMITTING, 02/08/17) PATIENT DENIES morphine (Unverified Adverse Reaction, Mild, VOMITTING, 02/08/17) Uncoded Allergies: STERI STRIPS (Allergy, Severe, BLISTERS, 12/05/16) Reported Meds & Prescriptions Reported Meds & Active Scripts Active Keflex (Cephalexin) 500 Mg Cap 500 Mg PO Q12H 7 Days Reported Simvastatin 40 Mg Tab 40 Mg PO HS Lantus Inj (Insulin Glargine) 1,000 Unit/10 Ml Vial 1 Units SQ HS Metformin (Metformin HCl) 850 Mg Tab 850 Mg PO BIDPC Metoprolol Tartrate 100 Mg Tab 100 Mg PO DAILY Lisinopril 40 Mg Tab 40 Mg PO DAILY Review of Systems Except as stated in HPI: all other systems reviewed are Neg Physical Exam Narrative GENERAL: Well-nourished, well-developed black female patient, in no acute distress; afebrile, nontoxic-appearing SKIN: Warm and dry. HEAD: Atraumatic. Normocephalic. EYES: Pupils equal and round. No scleral icterus. No injection or drainage. ENT: Mucous membranes pink and moist. NECK: Trachea midline. No lymphadenopathy. CARDIOVASCULAR: Regular rate and rhythm. No murmur appreciated. RESPIRATORY: No accessory muscle use. Clear to auscultation. Breath sounds equal bilaterally. GASTROINTESTINAL: Abdomen soft, non-tender, nondistended. Bilateral pelvic region nontender to palpation. Hepatic and splenic margins not palpable. No guarding, rigidity, rebound tenderness. PELVIC: Exam done in the presence of a nurse. Speculum exam reveals edematous and erythematous cervix with copious amounts of light green , mucopurulent, foul -smelling discharge. Bimanual exam reveals no palpable masses or adnexa tenderness, no uterine tenderness. No cervical motion tenderness. BACK: No CVA tenderness. MUSCULOSKELETAL: No obvious deformities. No clubbing. No cyanosis. No edema. NEUROLOGICAL: Awake and alert. No obvious cranial nerve deficits. Motor grossly within normal limits. Normal speech. PSYCHIATRIC: Appropriate mood and affect; insight and judgment normal. Data Data Last Documented VS Vital Signs Date Time Temp Pulse Resp B/P (MAP) Pulse Ox O2 Delivery O2 Flow Rate FiO2 2/24/18 11:27 98.8 74 12 127/82 (97) 100 Room Air Orders Orders Gc And Chlamydia Pcr (04/18/17 11:45) Wet Prep Profile (04/18/17 11:45) Urinalysis - C+S If Indicated (04/18/17 11:45) Ed Urine Pregnancytest Poc (04/18/17 11:45) Ceftriaxone Inj (Rocephin Inj) (04/18/17 12:30) Lidocaine 1% Inj (50 Ml) (Xylocaine 1% I (04/18/17 12:30) Azithromycin (Zithromax) (04/18/17 12:30) Metronidazole (Flagyl) (04/18/17 13:15) Urine Culture (04/18/17 13:20) Ed Discharge Order (04/18/17 14:05) Labs Laboratory Tests Test 04/18/17 11:59 04/18/17 13:20 Clue Cells (Wet Prep) NONE SEEN Vaginal Trichomonas (Wet Prep) PRESENT Vaginal Yeast (Wet Prep) NONE SEEN Urine Color YELLOW Urine Turbidity HAZY Urine pH 5.5 Urine Specific Spring 1.019 Urine Protein TRACE mg/dL Urine Glucose (UA) NEG mg/dL Urine Ketones NEG mg/dL Urine Occult Blood TRACE Urine Nitrite NEG Urine Bilirubin NEG Urine Urobilinogen LESS THAN 2.0 MG/DL Urine Leukocyte Esterase LARGE Urine RBC 8 /hpf Urine WBC 12 /hpf Urine Squamous Epithelial Cells 1 /hpf Urine Amorphous Sediment OCC Urine Mucus FEW /lpf Microscopic Urinalysis Comment CULTURE INDICATED MDM Medical Decision Making Medical Screen Exam Complete: Yes Emergency Medical Condition: Yes Medical Record Reviewed: Yes Differential Diagnosis Cervicitis, Trichomonas, bacterial vaginosis, UTI, PID, chlamydia, gonorrhea Narrative Course 51-year-old female physical exam and pelvic exam consistent with cervicitis. Denies abdominal pain. Patient is afebrile nontoxic pain. She denies fever, vomiting. Wet prep, chlamydia, gonorrhea, urinalysis ordered. Patient empirically treated with Rocephin 250 mg IM and azithromycin 1000 mg in the emergency department. 1306: Vaginal yeast negative. Bacterial vaginosis negative. Positive for Trichomonas. Flagyl 2 g ordered and administered in the ER. 1404: Urinalysis with signs of infection. Reflex to urine culture. Keflex prescribed for home. Instructed patient to follow up with primary care provider. Instructed patient to follow-up with gynecology. Patient provided community resources for outpatient follow-up. Patient verbalizes understanding and agreement with treatment plan. Patient is medically cleared and stable for discharge. Discussed reasons to return to the emergency department. Patient agrees with treatment plan. The patients vital signs are stable and the patient is stable for outpatient follow-up and treatment. Patient discharged home, stable and in no acute distress. Diagnosis Primary Impression: Cervicitis Additional Impressions: Trichomoniasis UTI (urinary tract infection) Qualified Codes: N39.0 - Urinary tract infection, site not specified Referrals: [facility] Patient Instructions: Cervicitis (ED), General Instructions, Trichomoniasis (ED ) Additional Instructions: Avoid sexual activity for 14 days No sexual activity with your partner/s until they have been treated and waited 14 days Inform all sexual partners within the past 3-6 months that they need to be evaluated and treated Use condoms every time you have sex Follow-up with primary care provider Follow-up with gynecology Return to the emergency department immediately with worsening of symptoms Take antibiotics as prescribed and complete full course Drink plenty of fluids Maintain good personal hygiene Follow-up with primary care provider Return to the emergency department immediately with worsening of symptoms Med/Other Pt SpecificInfo: Prescription(s) given Scripts Cephalexin (Keflex) 500 Mg Cap 500 MG PO Q12H for Infection for 7 Days, #14 CAP 0 Refills Prov: Mónica Ambriz 04/18/17 Disposition: DISCHARGE HOME Condition: Stable Mónica Ambriz Apr 18, 2017 12:28
[2017-04-18] MEDS ORDERED: cefTRIAXone 250 MG VIAL IM ONE (12:30)
[2017-04-18] MEDS ORDERED: AZITHROMYCIN 250 MG TAB PO ONE (12:30)
[2017-04-18] MEDS ORDERED: LIDOCAINE HCL 1% 50 ML VIAL IM ONE (12:30)
[2017-04-18] MEDS ORDERED: metroNIDAZOLE 500 MG TAB PO ONE (13:15)
[2017-04-18 13:50] LABS: AMORPHOUS SEDIMENT, URINE OCC; BILIRUBIN, URINE NEG (NEG); BLOOD, URINE TRACE (NEG); GLUCOSE,URINE NEG (NEG); KETONE, URINE NEG (NEG); MUCUS URINE FEW /lpf (OCC); NITRITE,URINE NEG (NEG); PH, URINE 5.5 (5.0-8.5); SQUAMOUS EPITHELIAL CELL URINE 1 /hpf (0-5); URINE COLOR YELLOW (YELLW/STRAW); URINE LEUKOCYTE ESTERASE LARGE (NEG)
[2017-04-18] MEDS ORDERED: CEPH-460 PO (14:04)
== END 2017-04-18 14:19 | disposition home or self-care (01) ==
LOC: NEPD 11:23
DX: N72 Inflammatory disease of cervix uteri (principal); A59.9 Trichomoniasis, unspecified; N39.0 Urinary tract infection, site not specified; E11.9 Type 2 diabetes mellitus without complications; E78.00 Pure hypercholesterolemia, unspecified; I10 Essential (primary) hypertension; Z79.4 Long term (current) use of insulin
CPT/HCPCS: 81001; 84703; 87086; 87210; 87491; 87591; 96372; 99283; J0696

== ENCOUNTER 2017-06-10 10:51 | Emergency (ER) | payer OTHER ==
[~2017-06-10] VITALS: Ht 170.2 cm; Wt 90.0 kg
[~2017-06-10 10:51] MED LIST changes: +CEPH-460 PO
[2017-06-10 10:58] VITALS: BP 207/109; PULSE 97; RESP 16; TEMP 98.6; O2SAT 96
[2017-06-10] MEDS ORDERED: ASPIRIN 81 MG CHEW TAB PO ONE (12:00)
[2017-06-10] MEDS ORDERED: SODIUM CHLORIDE 0.9% FLUSH 10 ML FLUSH IVF PRN (12:00)
[2017-06-10] MEDS ORDERED: SODIUM CHLORID 0.9% 500 ML INJ 500 ML IV ONE (12:00)
[2017-06-10] MEDS ORDERED: NITROGLYCERIN 0.4 MG SL 25 TABS/BTL SL ONE (12:00)
--- NOTE | 2017-06-10 12:07 | RADRPT ---
EXAM DATE/TIME: 06/10/2017 11:55 [facility] COMPARISON: CHEST SINGLE AP, February 08, 2017, 21:00. INDICATIONS : Chest pain. MEDICAL HISTORY : None. SURGICAL HISTORY : None. ENCOUNTER: Initial ACUITY: 1 day PAIN SCORE: 5/10 LOCATION: Left upper chest FINDINGS: A single view of the chest demonstrates the lungs to be symmetrically aerated without evidence of mas s, infiltrate or effusion. The cardiomediastinal contours are unremarkable. Osseous structures are intact. CONCLUSION: No acute disease. Mohan Eduardo MD FACR on June 10, 2017 at 12:05 Board Certified Radiologist. This report was verified electronically.
--- NOTE | 2017-06-10 12:19 | PD ---
HPI Chief Complaint: Cardiac Complaint Time Seen by Provider: 11:42 Travel History International Travel<30 days: No Contact w/Intl Traveler<30days: No Traveled to known affect area: No History of Present Illness HPI Patient is a 52-year-old female presenting to the emergency department for evaluation of chest pain. Patient states pain started right before she came to the emergency department. She reports the pain is on her left anterior chest wall, it does not radiate to her back. She reports mild nausea but denies any shortness of breath, headache, visual changes, abdominal pain. Patient reports a history of hypertension, diabetes, hyperlipidemia. She denies any previous heart attack. Pain is pressure-like. Symptom onset was sudden, symptoms are moderate in nature. There are no alleviating factors. Patient was not exerting herself when chest pain started she states she was just running errands. PFSH Past Medical History Hx Anticoagulant Therapy: No Cancer: Yes (MELANOMA 2001) Cardiac Catheterization: Yes (2015) High Cholesterol: Yes Diabetes: Yes GERD: Yes Hypertension: Yes Psychiatric: Yes (CLAUSTROPHOBIC) Immunizations Current: Yes Past Surgical History Abdominal Surgery: No AICD: No Cardiac Surgery: No Ear Surgery: No Endocrine Surgery: No Eye Surgery: No Genitourinary Surgery: No Gynecologic Surgery: Yes (PARTIAL HYSTERECTOMY) Hysterectomy: Yes (PARTIAL) Joint Replacement: No Neurologic Surgery: No Oral Surgery: No Pacemaker: No Thoracic Surgery: No Other Surgery: Yes (CYST REMOVAL RIGHT WRIST) Social History Alcohol Use: No Tobacco Use: No Substance Use: No Allergies-Medications (Allergen,Severity, Reaction): Coded Allergies: acetaminophen (Unverified Allergy, Intermediate, VOMITTING, 02/08/17) PATIENT DENIES ondansetron (Unverified Allergy, Intermediate, HIVES, 02/08/17) propoxyphene (Unverified Allergy, Intermediate, VOMITTING, 02/08/17) PATIENT DENIES morphine (Unverified Adverse Reaction, Mild, VOMITTING, 02/08/17) Uncoded Allergies: STERI STRIPS (Allergy, Severe, BLISTERS, 12/05/16) Reported Meds & Prescriptions Reported Meds & Active Scripts Active Keflex (Cephalexin) 500 Mg Cap 500 Mg PO Q12H 7 Days Reported Simvastatin 40 Mg Tab 40 Mg PO HS Lantus Inj (Insulin Glargine) 1,000 Unit/10 Ml Vial 1 Units SQ HS Metformin (Metformin HCl) 850 Mg Tab 850 Mg PO BIDPC Metoprolol Tartrate 100 Mg Tab 100 Mg PO DAILY Lisinopril 40 Mg Tab 40 Mg PO DAILY Review of Systems Except as stated in HPI: all other systems reviewed are Neg Eyes: No: Blurred Vision HENT: No: Headaches Cardiovascular: Positive: Chest Pain or Discomfort, No: Dyspnea on exertion Respiratory: No: Shortness of Breath Gastrointestinal: Positive: Nausea Physical Exam Narrative GENERAL: Well-developed, well-nourished, alert -[place] female. Presenting in no acute distress. SKIN: Warm and dry. HEAD: Atraumatic. Normocephalic. EYES: Pupils equal and round. No scleral icterus. No injection or drainage. ENT: No nasal bleeding or discharge. Mucous membranes pink and moist. NECK: Trachea midline. No JVD. CARDIOVASCULAR: Regular rate and rhythm. RESPIRATORY: No accessory muscle use. Clear to auscultation. Breath sounds equal bilaterally. GASTROINTESTINAL: Abdomen soft, non-tender, nondistended. Hepatic and splenic margins not palpable. MUSCULOSKELETAL: Extremities without clubbing, cyanosis, or edema. No obvious deformities. NEUROLOGICAL: Awake and alert. No obvious cranial nerve deficits. Motor grossly within normal limits. Five out of 5 muscle strength in the arms and legs. Normal speech. PSYCHIATRIC: Appropriate mood and affect; insight and judgment normal. Data Data Last Documented VS Vital Signs Date Time Temp Pulse Resp B/P (MAP) Pulse Ox O2 Delivery O2 Flow Rate FiO2 06/10/17 10:58 98.6 97 16 207/109 (141) 96 Orders Orders Electrocardiogram (06/10/17 11:00) Complete Blood Count With Diff (06/10/17 11:00) Ckmb (Isoenzyme) Profile (06/10/17 11:00) Troponin I (06/10/17 11:00) Chest, Single Ap (06/10/17 11:00) Comprehensive Metabolic Panel (06/10/17 11:59) Magnesium (Mg) (06/10/17 11:59) Prothrombin Time / Inr (Pt) (06/10/17 11:59) Act Partial Throm Time (Ptt) (06/10/17 11:59) Lipase (06/10/17 11:59) Ecg Monitoring (06/10/17 11:59) Bilateral Bp Monitoring (06/10/17 11:59) Iv Access Insert/Monitor (06/10/17 11:59) Oximetry (06/10/17 11:59) Oxygen Administration (06/10/17 11:59) Aspirin Chew (Aspirin Chew) (06/10/17 12:00) Sodium Chloride 0.9% Flush (Ns Flush) (06/10/17 12:00) Nitroglycerin Sl (Nitrostat Sl) (06/10/17 12:00) Sodium Chlorid 0.9% 500 Ml Inj (Ns 500 M (06/10/17 12:00) Vascular Access Team Consult/P PRN (06/10/17 12:01) Vascular Poc Ultrasound (06/10/17 ) Labs Laboratory Tests Test 06/10/17 12:10 White Blood Count 5.6 TH/MM3 Red Blood Count 4.01 MIL/MM3 Hemoglobin 11.1 GM/DL Hematocrit 33.5 % Mean Corpuscular Volume 83.5 FL Mean Corpuscular Hemoglobin 27.6 PG Mean Corpuscular Hemoglobin Concent 33.0 % Red Cell Distribution Width 13.0 % Platelet Count 367 TH/MM3 Mean Platelet Volume 7.2 FL Neutrophils (%) (Auto) 43.8 % Lymphocytes (%) (Auto) 48.3 % Monocytes (%) (Auto) 5.1 % Eosinophils (%) (Auto) 1.9 % Basophils (%) (Auto) 0.9 % Neutrophils # (Auto) 2.5 TH/MM3 Lymphocytes # (Auto) 2.7 TH/MM3 Monocytes # (Auto) 0.3 TH/MM3 Eosinophils # (Auto) 0.1 TH/MM3 Basophils # (Auto) 0.1 TH/MM3 CBC Comment DIFF FINAL Differential Comment Prothrombin Time 9.7 SEC Prothromb Time International Ratio 1.0 RATIO Activated Partial Thromboplast Time 27.1 SEC Blood Urea Nitrogen 13 MG/DL Creatinine 0.87 MG/DL Random Glucose 188 MG/DL Total Protein 8.7 GM/DL Albumin 4.1 GM/DL Calcium Level 9.1 MG/DL Magnesium Level 1.8 MG/DL Alkaline Phosphatase 80 U/L Aspartate Amino Transf (AST/SGOT) 14 U/L Alanine Aminotransferase (ALT/SGPT) 24 U/L Total Bilirubin 0.3 MG/DL Sodium Level 139 MEQ/L Potassium Level 3.9 MEQ/L Chloride Level 104 MEQ/L Carbon Dioxide Level 29.0 MEQ/L Anion Gap 6 MEQ/L Estimat Glomerular Filtration Rate 83 ML/MIN Lipase 119 U/L MDM Medical Decision Making Medical Screen Exam Complete: Yes Emergency Medical Condition: Yes Interpretation(s) Vital Signs Date Time Temp Pulse Resp B/P (MAP) Pulse Ox O2 Delivery O2 Flow Rate FiO2 06/10/17 10:58 98.6 97 16 207/109 (141) 96 Differential Diagnosis ACS versus [place] versus AMI versus chest wall pain versus GERD versus other Narrative Course Patient is a 52-year-old female presenting for evaluation of chest pain. Patient is hypertensive on arrival.. Labs and imaging ordered and pending. Vascular access consulted to place an IV.. Initial EKG shows normal sinus rhythm, this was reviewed by an attending physician. Care of patient transferred to Mariza Arizmendi Jun 10, 2017 12:18
[2017-06-10 12:23] LABS: AUTOMATED NEUTROPHIL # 2.5 TH/MM3 (1.8-7.7); BASOPHIL # 0.1 TH/MM3 (0-0.2); BASOPHIL % 0.9 % (0.0-2.0); EOSINOPHIL # 0.1 TH/MM3 (0-0.4); EOSINOPHIL % 1.9 % (0.0-4.0); HEMATOCRIT 33.5 % (35.0-46.0); HEMOGLOBIN 11.1 GM/DL (11.6-15.3); LYMPH % 48.3 % (9.0-44.0); LYMPHOCYTE # 2.7 TH/MM3 (1.0-4.8); MEAN CELL VOLUME 83.5 FL (80.0-100.0); MEAN CORPUSCULAR HEMOGLOBIN 27.6 PG (27.0-34.0); MEAN PLATELET VOLUME 7.2 FL (7.0-11.0); MONO % 5.1 % (0.0-8.0); MONOCYTE # 0.3 TH/MM3 (0-0.9); NEUT % 43.8 % (16.0-70.0); PLATELET COUNT 367 TH/MM3 (150-450); RED BLOOD COUNT 4.01 MIL/MM3 (4.00-5.30); WHITE BLOOD COUNT 5.6 TH/MM3 (4.0-11.0)
[2017-06-10 12:32] LABS: PROTHROMBIN TIME - PATIENT 9.7 SEC (9.8-11.6)
[2017-06-10 12:42] LABS: ALBUMIN 4.1 GM/DL (3.4-5.0); ALT (GPT) 24 U/L (10-53); AST (GOT) 14 U/L (15-37); BLOOD UREA NITROGEN 13 MG/DL (7-18); CALCIUM 9.1 MG/DL (8.5-10.1); CHLORIDE 104 MEQ/L (98-107); CREATININE 0.87 MG/DL (0.50-1.00); GLOMERULAR FILTRATION RATE 83 ML/MIN (>89); GLUCOSE,RANDOM 188 MG/DL (74-106); MAGNESIUM 1.8 MG/DL (1.5-2.5); SODIUM (NA) 139 MEQ/L (136-145)
[2017-06-10 12:45] LABS: ALKALINE PHOSPHATASE 80 U/L (45-117); TOTAL BILIRUBIN ADULT 0.3 MG/DL (0.2-1.0); TOTAL PROTEIN 8.7 GM/DL (6.4-8.2)
[2017-06-10 13:17] LABS: TROPONIN I LESS THAN 0.02 NG/ML (0.02-0.05)
[2017-06-10 13:31] VITALS: BP 150/97; PULSE 72; PULSE 74
[2017-06-10 13:34] VITALS: BP 150/97; PULSE 70
--- NOTE | 2017-06-10 13:40 | PD ---
Physical Exam Date Seen by Provider: Jun 10, 2017 Time Seen by Provider: 13:36 Narrative I resumed care from ANTONY Dawkins. Patient is a 52-year-old female who presents to the emergency department for evaluation of left-sided chest pain. She states that started today while running errands. She states that the pain did radiate to the left arm, but is not currently radiating. Current pain is 6/10 to the left chest. She states it is sharp in nature. She denies any alleviating or exacerbating factors. Patient denies any recent surgery or travel. She denies any leg edema. No hemoptysis. No history DVT or PE. Patient denies any cardiac history. She denies any stress test or cardiac catheterization. She does report history of hypertension, diabetes, hyperlipidemia. Moderate severity. GENERAL: Well-nourished, well-developed female patient, ambulatory. Afebrile. SKIN: Focused skin assessment warm/dry. HEAD: Normocephalic. Atraumatic. EYES: No scleral icterus. No injection or drainage. NECK: Supple, trachea midline. No JVD or lymphadenopathy. CARDIOVASCULAR: Regular rate and rhythm without murmurs, gallops, or rubs. RESPIRATORY: Breath sounds equal bilaterally. No accessory muscle use. Lungs sounds are clear to auscultation. GASTROINTESTINAL: Abdomen soft, non-tender, nondistended. MUSCULOSKELETAL: No cyanosis, or edema. BACK: Nontender without obvious deformity. No CVA tenderness. Data Data Last Documented VS Vital Signs Date Time Temp Pulse Resp B/P (MAP) Pulse Ox O2 Delivery O2 Flow Rate FiO2 06/10/17 13:35 Room Air 06/10/17 13:34 70 150/97 (114) 06/10/17 10:58 98.6 16 96 Orders Orders Electrocardiogram (06/10/17 11:00) Complete Blood Count With Diff (06/10/17 11:00) Ckmb (Isoenzyme) Profile (06/10/17 11:00) Troponin I (06/10/17 11:00) Chest, Single Ap (06/10/17 11:00) Comprehensive Metabolic Panel (06/10/17 11:59) Magnesium (Mg) (06/10/17 11:59) Prothrombin Time / Inr (Pt) (06/10/17 11:59) Act Partial Throm Time (Ptt) (06/10/17 11:59) Lipase (06/10/17 11:59) Ecg Monitoring (06/10/17 11:59) Bilateral Bp Monitoring (06/10/17 11:59) Iv Access Insert/Monitor (06/10/17 11:59) Oximetry (06/10/17 11:59) Oxygen Administration (06/10/17 11:59) Aspirin Chew (Aspirin Chew) (06/10/17 12:00) Sodium Chloride 0.9% Flush (Ns Flush) (06/10/17 12:00) Nitroglycerin Sl (Nitrostat Sl) (06/10/17 12:00) Sodium Chlorid 0.9% 500 Ml Inj (Ns 500 M (06/10/17 12:00) Vascular Access Team Consult/P PRN (06/10/17 12:01) Vascular Poc Ultrasound (06/10/17 ) CKMB (06/10/17 12:10) CKMB% (06/10/17 12:10) Labs Laboratory Tests Test 06/10/17 12:10 White Blood Count 5.6 TH/MM3 Red Blood Count 4.01 MIL/MM3 Hemoglobin 11.1 GM/DL Hematocrit 33.5 % Mean Corpuscular Volume 83.5 FL Mean Corpuscular Hemoglobin 27.6 PG Mean Corpuscular Hemoglobin Concent 33.0 % Red Cell Distribution Width 13.0 % Platelet Count 367 TH/MM3 Mean Platelet Volume 7.2 FL Neutrophils (%) (Auto) 43.8 % Lymphocytes (%) (Auto) 48.3 % Monocytes (%) (Auto) 5.1 % Eosinophils (%) (Auto) 1.9 % Basophils (%) (Auto) 0.9 % Neutrophils # (Auto) 2.5 TH/MM3 Lymphocytes # (Auto) 2.7 TH/MM3 Monocytes # (Auto) 0.3 TH/MM3 Eosinophils # (Auto) 0.1 TH/MM3 Basophils # (Auto) 0.1 TH/MM3 CBC Comment DIFF FINAL Differential Comment Prothrombin Time 9.7 SEC Prothromb Time International Ratio 1.0 RATIO Activated Partial Thromboplast Time 27.1 SEC Blood Urea Nitrogen 13 MG/DL Creatinine 0.87 MG/DL Random Glucose 188 MG/DL Total Protein 8.7 GM/DL Albumin 4.1 GM/DL Calcium Level 9.1 MG/DL Magnesium Level 1.8 MG/DL Alkaline Phosphatase 80 U/L Aspartate Amino Transf (AST/SGOT) 14 U/L Alanine Aminotransferase (ALT/SGPT) 24 U/L Total Bilirubin 0.3 MG/DL Sodium Level 139 MEQ/L Potassium Level 3.9 MEQ/L Chloride Level 104 MEQ/L Carbon Dioxide Level 29.0 MEQ/L Anion Gap 6 MEQ/L Estimat Glomerular Filtration Rate 83 ML/MIN Total Creatine Kinase 166 U/L Creatine Kinase MB LESS THAN 0.5 NG/ML Troponin I LESS THAN 0.02 NG/ML Lipase 119 U/L [facility] Supervised Visit with ZAHRAA: No Interpretation(s) Last Impressions Chest X-Ray 06/10/17 1100 Signed Impressions: Service Date/Time: Saturday, June 10, 2017 11:55 - CONCLUSION: No acute disease. Mohan Eduardo MD FACR Differential Diagnosis ACS versus chest wall pain versus anxiety versus pneumonia versus pneumothorax versus PE Narrative Course 52-year-old female presents to the emergency department for evaluation of left- sided chest pain that started today. EKG shows sinus rhythm, heart rate 79, no acute ST changes. CBC, CMP, CK, troponin, magnesium, lipase, PTT, PTT/INR were ordered and pending. Patient was given aspirin 324 mg by mouth, nitroglycerin 0.4 mg sublingually. Patient was given normal saline 1 L IV bolus. Chest x- ray was ordered and pending. CBC shows no acute abnormality. CMP shows hyperglycemia of 188. CK is 166. Troponin is less than 0.02. Magnesium is 1.8. Lipase is 119. Coags show no acute abnormality. Chest x-ray showed no acute disease. I discussed admission to the chest pain center with the patient to rule out ACS. She verbalizes agreement to this. I rechecked her blood pressure which is now 150/97. Upon further review, patient had stress test done on February 09, 2017 which showed low risk. Delta troponin will be completed. EKG shows Sinus rhythm, unchanged. Repeat troponin is less than 0.02. Patient will be discharged to follow-up with her primary care physician. She verbalizes agreement. Diagnosis Primary Impression: Chest pain Qualified Codes: R07.9 - Chest pain, unspecified Referrals: Primary Care Physician call for appointment Patient Instructions: Chest Pain (ED), General Instructions Additional Instruction: Follow-up with your primary care physician. Return to the emergency department for any acute worsening of symptoms. Med/Other Pt SpecificInfo: No Change to Meds Disposition: 01 DISCHARGE HOME Condition: Stable Shala Griffiths Jun 10, 2017 13:40
[2017-06-10 14:02] VITALS: BP 137/101; PULSE 74; RESP 18; O2SAT 100
[2017-06-10 15:00] VITALS: BP 139/83; PULSE 69; RESP 15; O2SAT 100
--- NOTE | 2017-06-11 10:00 | EKG ---
Date Performed: 06/10/2017 Time Performed: 15:22:47 PTAGE: 52 years EKG: Sinus rhythm NONSPECIFIC T-WAVE ABNORMALITY BORDERLINE ECG PREVIOUS TRACING : 06/10/2017 11.21 Since previous tracing, no significant change noted DOCTOR: Jas Hood Interpretating Date/Time 06/11/2017 09:58:29
--- NOTE | 2017-06-11 13:32 | EKG ---
Date Performed: 06/10/2017 Time Performed: 11:21:34 PTAGE: 52 years EKG: Sinus rhythm NORMAL ECG Since the PREVIOUS TRACING , no significant change noted PREVIOUS TRACIN02/09/2017 03.33 DOCTOR: Rudolph Veliz Interpretating Date/Time 06/11/2017 13:31:13
== END 2017-06-10 17:11 | disposition home or self-care (01) ==
LOC: NEPC 10:51 → UNDOADMOB 13:36 → NEDA 13:36
DX: R07.9 Chest pain, unspecified (principal); E78.00 Pure hypercholesterolemia, unspecified; E11.9 Type 2 diabetes mellitus without complications; I10 Essential (primary) hypertension; Z79.4 Long term (current) use of insulin; Z79.899 Other long term (current) drug therapy
CPT/HCPCS: 71045; 80053; 82550; 82552; 83690; 83735; 84484; 85025; 85610; 85730; 93005; 99284; J7040